=== PATIENT | female | born 1995 | race Caucasian/White ===

== ENCOUNTER 2022-05-14 11:03 | Inpatient (IN) | payer MEDICAID ==
[~2022-05-14] VITALS: Ht 144.8 cm; Wt 75.0 kg
[2022-05-14 11:46] LABS: CLARITY,URINE CLEAR (Clear); COLOR,URINE YELLOW (Yellow); GLUCOSE, URINE NEGATIVE (Neg); KETONES,URINE NEGATIVE (Neg); LEUKOCYTE ESTERASE ,URINE NEGATIVE (Neg); NITRITES, URINE NEGATIVE (Neg); OCCULT BLOOD,URINE NEGATIVE (Neg); PROTEIN,URINE NEGATIVE (Neg); URINE HCG NEGATIVE (NEG); UROBILINOGEN,URINE 0.2 E.U/dL (0.2-1.0)
[2022-05-14 11:51] LABS: UA COLLECTION TYPE CLN CATCH MIDSTREAM
[2022-05-14 11:59] LABS: BASOPHILS % (AUTO) 0.2 % (0-1); EOSINOPHILS # (AUTO) 0.5 X10'3 (0-0.9); EOSINOPHILS % (AUTO) 6.7 % (0-6); HEMATOCRIT 40.7 % (35.0-45.0); HEMOGLOBIN 13.6 g/dl (12.0-16.0); LYMPHOCYTES # (AUTO) 0.9 X10'3 (1.1-4.8); LYMPHOCYTES % (AUTO) 11.7 % (21-51); MEAN CORPUSCULAR HEMOGLOBIN 28.1 PG (27.0-31.0); MEAN CORPUSCULAR HGB CONC 33.4 g/dL (33.0-36.5); MEAN CORPUSCULAR VOLUME 84.3 FL (78-98); MONOCYTES # (AUTO) 0.4 X10'3 (0-0.9); MONOCYTES % (AUTO) 5.4 % (2-12); NEUTROPHILS # (AUTO) 5.8 X10'3 (1.8-7.7); PLATELET COUNT 221 X10'3 (140-440); RED BLOOD COUNT 4.84 X10'6 (4.20-5.60); RED CELL DISTRIBUTION WIDTH 14.4 % (11.5-14.5); WHITE BLOOD COUNT 7.6 X10'3 (4.5-11.0)
[2022-05-14 12:12] LABS: ALANINE AMINOTRANSFERASE 40 U/L (12-78); ALBUMIN 3.5 G/DL (3.4-5.0); ALBUMIN/GLOBULIN RATIO 0.9 (1.1-1.5); ALKALINE PHOSPHATASE 47 IU/L (46-116); ANION GAP 8 (8-16); ASPARTATE AMINO TRANSFERASE 59 U/L (10-37); BILIRUBIN,TOTAL 0.5 MG/DL (0.1-1.0); BLOOD UREA NITROGEN 16 MG/DL (7-18); BUN/CREATININE RATIO 17.8 (6.6-38.0); CALCIUM 8.8 MG/DL (8.5-10.1); CHLORIDE 104 MMOL/L (99-107); GLUCOSE 86 MG/DL (70-104); SODIUM 139 MMOL/L (135-145); TOTAL CARBON DIOXIDE 27.2 MMOL/L (24-32); TOTAL PROTEIN 7.6 G/DL (6.4-8.2); eGFR 76 ML/MIN
[2022-05-14 12:18] LABS: AMYLASE 237 U/L (25-115)
[2022-05-14 12:35] LABS: LIPASE 2042 U/L (73-393)
[2022-05-14] MEDS ORDERED: ondansetron/PF 4mg/2ml inj IV ONE (16:35)
[2022-05-14] MEDS ORDERED: morphine 4 MG/ML inj SYRINge IV ONE (16:35)
[2022-05-14] MEDS ORDERED: ringers solution, lacted 1,000 ML IV ONE (16:35)
[2022-05-14 16:57] LABS: TRIGLYCERIDES 34 MG/DL (20-135)
[2022-05-14 17:00] LABS: ETHANOL < 0.010 GM/DL (0.0-0.010)
[2022-05-14] MEDS ORDERED: acetaminophen 325mg tablet PO PRN (20:50)
[2022-05-14] MEDS ORDERED: metoclopramide 5 mg/ml inj IV PRN (20:50)
[2022-05-14] MEDS ORDERED: bisacodyl 10mg suppository rectal RC PRN (20:50)
[2022-05-14] MEDS ORDERED: HYDROcodone/acetaminophen 10/325mg tab PO PRN (20:50)
[2022-05-14] MEDS ORDERED: mag hydrox/Alum hydrox/simeth 30ml oral suspension PO PRN (20:50)
[2022-05-14] MEDS ORDERED: ondansetron/PF 4mg/2ml inj IV PRN (20:50)
[2022-05-14] MEDS ORDERED: potassium Cl 40MEQ/1/2NS 520ml 520 ML IV PRN (20:50)
[2022-05-14] MEDS ORDERED: HYDROmorphone inj. 0.5 MG/0.5 ML DISP.SYRIN IV PRN (20:50)
[2022-05-14] MEDS ORDERED: potassium Cl 20 mEq SR tablet PO PRN ×2 (20:50)
[2022-05-14] MEDS ORDERED: morphine 2 MG/ML inj. syringe IV PRN ×2 (20:50)
[2022-05-14] MEDS ORDERED: magnesium Cl slow-release 64mg tablet PO PRN (20:50)
[2022-05-14] MEDS ORDERED: ondansetron 4mg rapidly disintigrating tab PO PRN (20:50)
[2022-05-14] MEDS ORDERED: HYDROcodone/acetaminophen 5mg/325mg tablet PO PRN (20:50)
[2022-05-14] MEDS ORDERED: acetaminophen 650mg rectal suppository RC PRN (20:50)
[2022-05-14] MEDS ORDERED: magnesium hydroxide 30ml (MOM) UD suspension PO PRN (20:50)
[2022-05-14] MEDS: normal saline 1000ml 1,000 ML IV SCH (20:50)
[2022-05-14] MEDS ORDERED: diphenhydrAMINE 50 mg/ml inj IV PRN (20:50)
[2022-05-14] MEDS ORDERED: diphenhydrAMINE 25mg capsule PO PRN (20:50)
[2022-05-14] MEDS ORDERED: magnesium 4gm in 100ml NS 100 ML IV PRN (20:50)
[2022-05-14] MEDS ORDERED: diphenoxylate/atropine tablet (Lomotil) PO PRN (21:00)
[2022-05-14] MEDS ORDERED: temazepam 15mg capsule PO PRN (21:00)
[2022-05-14 21:38] LABS: APTT 27 SECONDS (22-32)
[2022-05-14 21:47] LABS: MAGNESIUM 1.8 MG/DL (1.5-2.4); PHOSPHORUS 3.5 MG/DL (2.3-4.5)
[2022-05-14] MEDS ORDERED: haloperidol lactate 5mg/ml inj IM PRN (22:55)
[2022-05-14] MEDS ORDERED: dextrose 50%-water 50ml dispensing syringe IV PRN (22:55)
[2022-05-14] MEDS ORDERED: LORazepam 2 mg/ml vial IV PRN (22:55)
[2022-05-14] MEDS ORDERED: haloperidol 5mg tablet PO PRN (22:55)
[2022-05-14 23:00] VITALS: BP 108/68
[2022-05-15] VITALS (12 sets, daily range): BP systolic 94–142; BP diastolic 55–105
[2022-05-15] MEDS: acetaminophen 325mg tablet PO PRN ×2 (01:14→08:40)
--- NOTE | 2022-05-15 06:15 | NUR ---
Problems reprioritized. Patient report given, questions answered & plan of care reviewed with ADRIÁN COSETLLO.
--- NOTE | 2022-05-15 06:35 | NUR ---
Patient in room [facility]. I have received report from ADRIÁN madrigal and had the opportunity to ask questions and assume patient care.
[2022-05-15 07:06] LABS: BASOPHILS % (AUTO) 0.7 % (0-1); EOSINOPHILS # (AUTO) 0.3 X10'3 (0-0.9); EOSINOPHILS % (AUTO) 11.5 % (0-6); HEMATOCRIT 34.1 % (35.0-45.0); HEMOGLOBIN 11.3 g/dl (12.0-16.0); LYMPHOCYTES # (AUTO) 0.7 X10'3 (1.1-4.8); LYMPHOCYTES % (AUTO) 26.1 % (21-51); MEAN CORPUSCULAR HGB CONC 33.1 g/dL (33.0-36.5); MEAN CORPUSCULAR VOLUME 84.5 FL (78-98); MEAN PLATELET VOLUME 8.2 FL (7.4-10.4); MONOCYTES # (AUTO) 0.3 X10'3 (0-0.9); MONOCYTES % (AUTO) 12.6 % (2-12); NEUTROPHILS # (AUTO) 1.3 X10'3 (1.8-7.7); NEUTROPHILS % (AUTO) 49.1 % (42-75); PLATELET COUNT 166 X10'3 (140-440); RED BLOOD COUNT 4.03 X10'6 (4.20-5.60); RED CELL DISTRIBUTION WIDTH 13.9 % (11.5-14.5); WHITE BLOOD COUNT 2.7 X10'3 (4.5-11.0)
[2022-05-15 07:22] LABS: ALANINE AMINOTRANSFERASE 490 U/L (12-78); ALBUMIN 2.8 G/DL (3.4-5.0); ALBUMIN/GLOBULIN RATIO 0.8 (1.1-1.5); ALKALINE PHOSPHATASE 92 IU/L (46-116); ANION GAP 5 (8-16); ASPARTATE AMINO TRANSFERASE 456 U/L (10-37); BILIRUBIN,TOTAL 1.2 MG/DL (0.1-1.0); BLOOD UREA NITROGEN 11 MG/DL (7-18); BUN/CREATININE RATIO 13.9 (6.6-38.0); CALCIUM 7.4 MG/DL (8.5-10.1); CHLORIDE 105 MMOL/L (99-107); CREATININE 0.79 MG/DL (0.40-0.90); GLUCOSE 81 MG/DL (70-104); MAGNESIUM 1.8 MG/DL (1.5-2.4); POTASSIUM 4.1 MMOL/L (3.5-5.1); SODIUM 136 MMOL/L (135-145); TOTAL CARBON DIOXIDE 25.8 MMOL/L (24-32); TOTAL PROTEIN 6.1 G/DL (6.4-8.2); eGFR 89 ML/MIN
[2022-05-15 07:49] LABS: TOTAL CELLS COUNTED 100
[2022-05-15 07:50] LABS: PLATELET ESTIMATE NORMAL
[2022-05-15] MEDS: docusate sod 100mg capsule PO SCH ×2 (08:00→19:41)
[2022-05-15] MEDS: K and/or MAG REPLACEMENT MC SCH ×2 (08:00→20:00)
[2022-05-15] MEDS ORDERED: folic acid 1mg/0.2ml inj IV SCH (08:00)
[2022-05-15] MEDS: pantoprazole 40MG/NS 100ML BAG 100 ML IV SCH (08:24)
[2022-05-15] MEDS: normal saline 1000ml 1,000 ML IV SCH ×3 (08:26→19:46)
[2022-05-15] MEDS: heparin, porcine 5000 units/ml vial SQ SCH ×2 (08:33→19:44)
[2022-05-15] MEDS: thiamine 100mg/ml 2ml inj. IV SCH ×2 (08:34→16:20)
--- NOTE | 2022-05-15 08:42 | NUR ---
PAGER ID: [phone] MESSAGE: [id number]- DANETTE BENNETT- pt denies pain or n/v. asking if she can start a diet. Lipase 2041 yesterday. Ok to start a diet?- Netta [id number]
[2022-05-15] MEDS ORDERED: FLU VACC QS2022-23(6MOS UP)/PF 60 MCG/0.5 ML SYRINGE IMVAC ONE (10:00)
[2022-05-15] MEDS ORDERED: pneumococcal 23-VAL P-sac vacc 25 mcg/0.5ml vial IMVAC ONE (10:00)
[2022-05-15 10:02] LABS: LIPASE 97 U/L (73-393)
[2022-05-15] MEDS ORDERED: ALBU17AE26 IH (17:01)
[2022-05-15] MEDS ORDERED: FLUT1BLS10 INH (17:01)
[2022-05-15] MEDS ORDERED: DIPH25CA83 PO (17:01)
[2022-05-15] MEDS ORDERED: diphenhydrAMINE 25mg capsule PO PRN (17:20)
--- NOTE | 2022-05-15 18:06 | NUR ---
Problems reprioritized. Patient report given, questions answered & plan of care reviewed with ADRIÁN Baeza.
[2022-05-15] MEDS ORDERED: albuterol 2.5 MG/3 ML nebule NEB PRN (18:15)
--- NOTE | 2022-05-15 18:30 | NUR ---
Assumed care of pt at this time report receive from Leigh Ann SAMPSON.
[2022-05-15] MEDS: thiamine 100mg tablet PO SCH (20:29)
[2022-05-15] MEDS: folic acid 1mg tablet PO SCH (20:29)
[2022-05-15] MEDS: budesonide 0.5mg/2ml UD nebule IH SCH (21:00)
[2022-05-15] MEDS: albuterol 2.5 MG/3 ML nebule NEB SCH (21:00)
--- NOTE | 2022-05-15 23:00 | NUR ---
Student documentation: I have reviewed and agree with all interventions, assessments performed and documented by Dinah NOLAN.Student Medication Administration: For this medication-pass time frame,1497-0825 all medication were reviewed, dispensed, administered and documented per hospital policy by [Dinah Badillo].
[2022-05-16] MEDS: albuterol 2.5 MG/3 ML nebule NEB SCH ×2 (03:46→07:24)
[2022-05-16] MEDS: normal saline 1000ml 1,000 ML IV SCH ×2 (03:58→10:38)
[2022-05-16] MEDS: acetaminophen 325mg tablet PO PRN (04:03)
[2022-05-16 06:00] VITALS: BP 111/70
--- NOTE | 2022-05-16 06:24 | NUR ---
Report to Sonia CHAND.
--- NOTE | 2022-05-16 06:27 | NUR ---
Patient in room [facility]. I have received report from anastasia SAMPSON and had the opportunity to ask questions and assume patient care.
[2022-05-16 06:47] LABS: BASOPHILS % (AUTO) 0.2 % (0-1); EOSINOPHILS # (AUTO) 0.4 X10'3 (0-0.9); EOSINOPHILS % (AUTO) 4.6 % (0-6); HEMATOCRIT 33.8 % (35.0-45.0); HEMOGLOBIN 11.4 g/dl (12.0-16.0); LYMPHOCYTES # (AUTO) 1.1 X10'3 (1.1-4.8); LYMPHOCYTES % (AUTO) 13.2 % (21-51); MEAN CORPUSCULAR HEMOGLOBIN 28.5 PG (27.0-31.0); MEAN CORPUSCULAR HGB CONC 33.7 g/dL (33.0-36.5); MEAN CORPUSCULAR VOLUME 84.6 FL (78-98); MEAN PLATELET VOLUME 8.4 FL (7.4-10.4); MONOCYTES # (AUTO) 0.6 X10'3 (0-0.9); MONOCYTES % (AUTO) 7.1 % (2-12); NEUTROPHILS # (AUTO) 6.3 X10'3 (1.8-7.7); NEUTROPHILS % (AUTO) 74.9 % (42-75); PLATELET COUNT 174 X10'3 (140-440); RED CELL DISTRIBUTION WIDTH 14.1 % (11.5-14.5); WHITE BLOOD COUNT 8.5 X10'3 (4.5-11.0)
[2022-05-16 06:51] LABS: ALANINE AMINOTRANSFERASE 325 U/L (12-78); ALBUMIN 2.8 G/DL (3.4-5.0); ALBUMIN/GLOBULIN RATIO 0.8 (1.1-1.5); ALKALINE PHOSPHATASE 83 IU/L (46-116); ANION GAP 6 (8-16); ASPARTATE AMINO TRANSFERASE 185 U/L (10-37); BILIRUBIN,TOTAL 0.4 MG/DL (0.1-1.0); BLOOD UREA NITROGEN 6 MG/DL (7-18); CALCIUM 7.9 MG/DL (8.5-10.1); CHLORIDE 108 MMOL/L (99-107); CREATININE 0.75 MG/DL (0.40-0.90); GLUCOSE 99 MG/DL (70-104); MAGNESIUM 1.9 MG/DL (1.5-2.4); POTASSIUM 3.9 MMOL/L (3.5-5.1); SODIUM 137 MMOL/L (135-145); TOTAL CARBON DIOXIDE 22.8 MMOL/L (24-32); TOTAL PROTEIN 6.2 G/DL (6.4-8.2); eGFR > 90 ML/MIN
[2022-05-16] MEDS: budesonide 0.5mg/2ml UD nebule IH SCH (07:24)
[2022-05-16] MEDS: pantoprazole 40MG/NS 100ML BAG 100 ML IV SCH (07:58)
[2022-05-16] MEDS: folic acid 1mg tablet PO SCH (07:59)
[2022-05-16] MEDS: thiamine 100mg tablet PO SCH (07:59)
[2022-05-16] MEDS: docusate sod 100mg capsule PO SCH (07:59)
[2022-05-16] MEDS: K and/or MAG REPLACEMENT MC SCH (08:00)
[2022-05-16] MEDS: heparin, porcine 5000 units/ml vial SQ SCH (08:01)
[2022-05-16 10:00] VITALS: BP 100/64
--- NOTE | 2022-05-16 13:07 | NUR ---
VEGETABLE SORTER documentation: I have reviewed and agree with all interventions, assessments performed and documented by Sonia Zuñiga LVN.
--- NOTE | 2022-05-16 13:11 | NUR ---
Problems reprioritized. Patient report given, questions answered & plan of care reviewed with Stu SAMPSON.
--- NOTE | 2022-05-16 13:15 | NUR ---
Patient in room [facility]. I have received report from JAGRUTI Solano and had the opportunity to ask questions and assume patient care.
--- NOTE | 2022-05-16 13:27 | NUR ---
I agree with previous nurse physical assessment charting.
[2022-05-16 13:33] VITALS: BP 100/64
--- NOTE | 2022-05-16 14:00 | NUR ---
Patient alert and oriented in no apparent acute distress and tolerated regular diet. Patient denies any symptoms. Discussed with patient discharge instructions and patient verbalizes understanding of teaching. Patient ready for dc and waiting for her father for transport home.
--- NOTE | 2022-05-16 14:36 | NUR ---
Patient dc'd with all personal belongings.
[2022-05-16] MEDS ORDERED: LORazepam 1 MG tablet PO PRN (22:55)
[2022-05-16] MEDS ORDERED: LORazepam 2 mg/ml vial IV PRN (22:55)
[2022-05-18] MEDS ORDERED: LORazepam 1 MG tablet PO PRN (22:55)
[2022-05-18] MEDS ORDERED: LORazepam 2 mg/ml vial IV PRN (22:55)
[2022-05-19] MEDS ORDERED: thiamine 100mg tablet PO SCH (08:00)
[2022-05-19] MEDS ORDERED: folic acid 1mg tablet PO SCH (08:00)
== END 2022-05-16 14:36 | disposition home or self-care (01) | DRG 282 ==
LOC: ER 11:04 → ED HOLD 20:56 → SUR 3N 23:55
PROVIDERS: ADMIT Family Medicine; ATTEND Family Medicine
PROC: 3E0234Z Introduction of Serum, Toxoid and Vaccine into Muscle, Percutaneous Approach (ICD-10-PCS; principal; 2022-05-15)
PROC: 3E02340 Introduction of Influenza Vaccine into Muscle, Percutaneous Approach (ICD-10-PCS; 2022-05-15)
DX: K85.20 Alcohol induced acute pancreatitis without necrosis or infection (principal); F10.20 Alcohol dependence, uncomplicated; R74.01 Elevation of levels of liver transaminase levels; R19.7 Diarrhea, unspecified; I10 Essential (primary) hypertension; Z90.49 Acquired absence of other specified parts of digestive tract; Z23 Encounter for immunization; Z71.41 Alcohol abuse counseling and surveillance of alcoholic
CPT/HCPCS: 36415; 76700; 80053; 80320; 81003; 81025; 82150; 83690; 83735; 83880; 84100; 84478; 85007; 85025; 85610; 85730; 87081; 94640; 94760; 99285; C9113; G0378; J1644; J2270; J2405; J3411; J3490; J7030; J7120